=== PATIENT | male | born 1980 | race African-American/Black ===

== ENCOUNTER 2024-01-18 23:30 | Emergency (ER) | payer MEDICAID, OTHER ==
[~2024-01-18] VITALS: Ht 172.7 cm; Wt 80.0 kg
[2024-01-18 23:33] VITALS: O2SAT 100
[2024-01-19 05:25] LABS: BASOPHILS % 0.5 % (0.0-2.0); EOSINOPHILS % 0.8 % (0.0-5.0); HEMATOCRIT. 38.6 % (42.0-52.0); HEMOGLOBIN. 13.5 g/dL (14.0-18.0); LYMPHOCYTES % 37.5 % (20.0-50.0); MEAN CORPUSCULAR HEMOGLOBIN 31.4 pg (28.0-32.0); MEAN CORPUSCULAR HGB CONC 34.9 g/dL (31.0-37.0); MEAN CORPUSCULAR VOLUME 90.1 fL (80.0-94.0); MONOCYTES % 7.9 % (2.0-8.0); NEUTROPHILS % 53.3 % (40.0-76.0); PLATELET 141 x1000/uL (130-400); RED BLOOD CELL COUNT 4.29 mill/uL (4.7-6.1); RED CELL DISTRIBUTION WIDTH 13.9 % (11.6-14.6); WHITE BLOOD COUNT 7.2 x1000/uL (4.5-11.0)
[2024-01-19 05:38] LABS: ALANINE AMINOTRANSFERASE 29 IU/L (10-49); ALBUMIN 4.4 g/dL (3.2-4.8); ASPARTATE AMINOTRANSFERASE 45 IU/L (<34); BILIRUBIN TOTAL 1.8 mg/dL (0.1-1.0); CALCIUM 8.9 mg/dL (8.7-10.4); CARBON DIOXIDE 24 mEq/L (21-32); CHLORIDE 108 mEq/L (98-107); GLUCOSE 91 mg/dL (70-105); POTASSIUM 3.4 mEq/L (3.5-5.1); PROTEIN TOTAL 7.7 g/dL (6.0-8.3); SODIUM 138 mEq/L (136-145); UREA NITROGEN BLOOD 11 mg/dL (9-23)
[2024-01-19 05:50] VITALS: BP 129/74; PULSE 89; RESP 16; TEMP 98.1
== END 2024-01-19 06:10 | disposition home or self-care (01) ==
LOC: ER 23:36
DX: R53.1 Weakness (principal)
CPT/HCPCS: 36415; 80053; 85025; 99283